=== PATIENT | female | born 1950 | race Caucasian/White ===

== ENCOUNTER 2017-01-03 09:47 | Day surgery (SDC) | payer MEDICARE ==
[~2017-01-03] VITALS: Ht 165.1 cm; Wt 90.0 kg
--- NOTE | 2017-01-03 07:31 | PCM.HPANE ---
Patient Data Surgeon Admitting Provider: Attending Provider:Rogelio Acosta MD Primary Care Physician:Reuben Dempsey MD Other Provider:Rebecca Deyingham Anesthesia Reason for Visit Benign Neoplasm Of Colon Ht/WT & BMI Body Mass Index Allergies Coded Allergies: codeine (Verified Allergy, Intermediate, Nausea,Vomiting, 01/02/17) naproxen (Verified Adverse Reaction, Intermediate, ELEVATES BP, 01/02/17) Diabetes History Hx Diabetes?: No Medications Reported Medications Cholecalciferol (Vitamin D3) (Vitamin D3)5,000 Unit Capsule5,000 Unit PO DAILY 01/02/17 Cyanocobalamin (Vitamin B-12) (Vitamin B12)5,000 Mcg Tab.rapdis5,000 Mcg PO 01/02/17 Sodium Fluoride (Prevident)473 Ml Qcecmamj806 Ml DT 01/02/17 Multivitamin (Once Daily)1 Each Tablet1 Each PO DAILY 01/02/17 Isosorbide Dinitrate ER (Dilatrate SR)40 Mg Dmqxtlo24 Mg PO DAILY 01/02/17 Ibuprofen 400 Mg Jcguns585 Mg PO QID PRN For Pain Ref 0 01/02/17 Gabapentin 600 Mg Uyjwnk298 Mg PO TID Ref 0 01/02/17 Flaxseed Oil ([place]-3 Flaxseed Oil)1,000 Mg Capsule1,000 Mg PO DAILY 01/02/17 Doxycycline Hyclate 50 Mg Tablet.dr50 Mg PO BID 01/02/17 Ubidecarenone (Coq-10)100 Mg Hdxsujq693 Mg PO DAILY 01/02/17 Calcium Carbonate (Calcium)600 Mg Tedshh887 Mg PO DAILY 01/02/17 Benazepril 40 Mg Civubg72 Mg PO 01/02/17 Aspirin 81 Mg Yzgtyv12 Mg PO DAILY Ref 0 01/02/17 Amlodipine 5 Mg Tablet5 Mg PO DAILY Ref 0 01/02/17 Acyclovir 400 Mg Uezxqd295 Mg PO BID Ref 0 01/02/17 History Cardiovascular History: Positive for:: Hypertension Denies:: Congestive Heart Failure Respiratory History: Denies:: Tuberculosis Hx Surgeries?: No Hx Diabetes: No Hx Alcohol Use: Yes ( "ON THE WEEKENDS, 8OZ.")Hx Substance Use: No Smoking Status: Never Smoker Stop/Bang Risk Assessment Category Category 1A: Patient has history of documented sleep apnea, and HAS NOT received any narcotic, sedative or anesthesia administration during this stay. Category 1B: Patient has history of documented sleep apnea, and HAS received any narcotic , sedative or anesthesia administration during this stay Category 2: Patient has SUSPECTED Obstructive Sleep Apnea, and HAS received any narcotic , sedative or anesthesia administration during this stay. Category 3: Patient has SUSPECTED Obstructive Sleep Apnea and HAS NOT received narcotic, sedative or anesthesia administration during this stay. Category 4: Outpatient in Procedural Areas with known sleep apnea or who screen positive for High Risk via the STOP/BANG questionnaire. Exam Exam General Appearance: Alert, Oriented X3, Cooperative, No Acute Distress HEENT/AIRWAY: MP 2 Lungs: Normal Air Movement Heart: Regular Rate/Rhythm Plan Impression Patient chart reviewed, patient interviewed and anesthestic plan with risks, benefits, and alternatives discussed, and informed consent obtained. ASA Physical Status: ASA2 Mod Systemic Disease Anesthetic Plan: MAC Bene/Risks/Altern/Consents: Yes HP Complete Prior to Induction: Yes Josee Camargo DO Jan 03, 2017 07:31
[~2017-01-03 09:47] MED LIST: ACYC400T2 PO; AMLO5TAB2 PO; ASPI-973 PO; BENA40TA2 PO; CALC600T12 PO; CHOL5000 PO; CYAN50008 PO; DOXY50TA9 PO; FLAX100038 PO; GABA600T2 PO; IBUP400T22 PO; Lactated Ringer's 1,000 ML IV ONE; MULT-666 PO; SODI473S5 DT; UBID100C16 PO; [UNRECOGNIZED DRUG - CODE] PO
[2017-01-03] MEDS ORDERED: Propofol 10,000 mCg/mL 20 mL Inj ONE (09:48)
[2017-01-03 10:13] VITALS: BP 155/100; PULSE 66; O2SAT 96
[2017-01-03 10:57] VITALS: BP 111/75; PULSE 55; RESP 12; O2SAT 96
--- NOTE | 2017-01-03 10:59 | PCM.ANEP1 ---
Post Anesthesia Phase 1 PACU Phase 1 Assessment Vital Signs Vital Signs Date Time Temp Pulse Resp B/P Pulse Ox O2 Delivery O2 Flow Rate FiO2 01/03/17 10:57 55 12 111/75 96 Room Air 01/03/17 10:13 36.4 66 155/100 96 Room Air Anesthetic Administered: MAC Level of Alertness: Awake, talking MATHEWS's with Equal Strength: Yes Pain: No Nausea or Vomiting: No Oxygen Delivery: Room Air Lungs: Normal Air Movement Josee Camargo DO Jan 03, 2017 10:58
--- NOTE | 2017-01-03 10:59 | PCM.ANEP2 ---
Post Anesthesia Evaluation ASA/CMS Post Anesthesia VS in Patient's Normal Range?: Yes Resp Stable; Airway Patent?: Yes CV Function & Hydration Stable: Yes Mental Status Recovered?: Yes Pain control Satisfactory?: Yes N/V Control Satisfactory?: Yes Josee Camargo DO Jan 03, 2017 10:59
[2017-01-03 11:13] VITALS: BP 138/92; PULSE 55; RESP 14; O2SAT 98
--- NOTE | 2017-01-03 11:24 | ENDO ---
[address] [address] ENDOSCOPY PROCEDURE PATIENT: VICKIE LEACH : 1950 MR#: [id number] ADMIT: 01/03/2017 JOB ID: [id number] DATE OF SERVICE: 01/03/2017 PRIMARY PROVIDER: Dewayne Dempsey MD. PROCEDURE: Colonoscopy with cold forceps polypectomy. INDICATIONS: A 66-year-old female with a family history of colon cancer and a personal history of colon polyps, returning for surveillance. EQUIPMENT: Diplopia-H180AL. SEDATION: Monitored anesthesia as provided by Dr. Josee Camargo. COMPLICATIONS: None identified. BOWEL PREPARATION: Fair, adequate exam. PROCEDURE INFORMATION: After the risks and benefits were explained, written and verbal informed consent was obtained. The patient was brought into the endoscopy suite and placed into the left lateral decubitus position. Sedation was achieved as above. A digital rectal examination accomplished. Mild internal hemorrhoids noted. The scope was introduced into the rectum and advanced under direct visualization to the cecum as identified by the appendiceal orifice and ileocecal valve. The scope was slowly withdrawn to carefully examine the mucosa for any defects or lesions. Multiple direct views were made through the dentate line for exclusion of pathology. The colon was decompressed. The scope removed from the patient who tolerated the procedure well. FINDINGS: There were no significant polyps or mass lesions. A very diminutive polyp was seen in the transverse colon, removed with cold forceps. There was some mild diverticulosis in the right colon. No other significant pathology identified throughout. ENDOSCOPIC DIAGNOSES: 1. Diverticulosis. 2. Diminutive colon polyp. RECOMMENDATIONS: 1. Await histopathology. 2. Repeat colonoscopy in five years.
--- NOTE | 2017-01-04 14:21 | PATH ---
SURGICAL PATHOLOGY Attending Physician:Betty Méndez CASE STATUS: Signed Out PATIENT NAME: VICKIE ARREDONDO PID: [id number] : 1950 DATE COLLECTED:01/03/2017 15:34 SPECIMEN: Colon, Biopsy CLINICAL HISTORY: TRANSVERSE COLON POLYP FINAL DIAGNOSIS: Polyp, Transverse Colon: Small tubular adenoma. ICD10: D12.3 GROSS DESCRIPTION: The specimen is received in one formalin filled container labeled with the patient's name, sublabeled "transverse colon polyp" and consists of a 0.3 x 0.3 x 0.2 CM portion of tissue which is entirely submitted in one cassette. 01/03/2017 [facility] ICD-9 CODES: CPT CODES: 1: 79008 Electronically Signed Out Rogelio Kevin MD [facility] Pathology [facility] [address], [place] [address] Technical component performed at [facility], [facility] [address], [place], [address]
== END 2017-01-03 23:59 | disposition home or self-care (01) ==
LOC: END 09:47
PROVIDERS: ATTEND Internal Medicine Gastroenterology
DX: Z12.11 Encounter for screening for malignant neoplasm of colon (principal); D12.3 Benign neoplasm of transverse colon; K57.30 Diverticulosis of large intestine without perforation or abscess without bleeding; I10 Essential (primary) hypertension; Z80.0 Family history of malignant neoplasm of digestive organs; Z86.010 Personal history of colon polyps; Z79.82 Long term (current) use of aspirin; Z79.899 Other long term (current) drug therapy
CPT/HCPCS: 45380; 88305; J7120